=== PATIENT | female | born 1960 | race Caucasian/White ===

== ENCOUNTER 2023-03-29 09:37 | Outpatient (CLI) | payer BC | END 2023-03-29 09:38 | disposition home or self-care (01) | LOC: CSHMAMMO 09:37 | PROVIDERS: ATTEND Family Medicine Sports Medicine | DX: Z12.31 Encounter for screening mammogram for malignant neoplasm of breast (principal) | CPT/HCPCS: 77063; 77067 ==

== ENCOUNTER 2024-04-28 10:33 | Outpatient (CLI) | payer MEDICARE | END 2024-04-28 10:34 | disposition home or self-care (01) | LOC: CSHMRI 10:33 | PROVIDERS: ATTEND Psychiatry & Neurology Neurology | DX: R41.3 Other amnesia (principal); J32.0 Chronic maxillary sinusitis | CPT/HCPCS: 70551 ==

== ENCOUNTER 2024-08-25 09:58 | Outpatient (CLI) | payer MEDICARE, OTHER | END 2024-08-25 09:59 | disposition home or self-care (01) | LOC: CSHMAMMO 09:58 | PROVIDERS: ATTEND Family Medicine Sports Medicine | DX: Z12.31 Encounter for screening mammogram for malignant neoplasm of breast (principal) | CPT/HCPCS: 77063; 77067 ==

== ENCOUNTER 2025-08-29 10:11 | Emergency (ER) | payer MEDICARE, OTHER | END 2025-08-29 11:15 | disposition home or self-care (01) | LOC: CSHERS 10:11 | DX: R42 Dizziness and giddiness (principal); R29.700 NIHSS score 0; E11.9 Type 2 diabetes mellitus without complications; I10 Essential (primary) hypertension; Z55.6 Problems related to health literacy | CPT/HCPCS: 93005; 99284 ==

== ENCOUNTER 2025-11-09 10:13 | Outpatient (CLI) | payer MEDICARE, OTHER | END 2025-11-09 10:14 | disposition home or self-care (01) | LOC: CSHMAMMO 10:13 | PROVIDERS: ATTEND Family Medicine Sports Medicine | DX: Z12.31 Encounter for screening mammogram for malignant neoplasm of breast (principal) | CPT/HCPCS: 77063; 77067 ==